=== PATIENT | female | born 1980 | race Two or more races ===

== ENCOUNTER 2023-08-20 11:07 | Emergency (ER) | payer BC, OTHER ==
[~2023-08-20] VITALS: Ht 154.9 cm; Wt 85.0 kg
[2023-08-20] MEDS ORDERED: cloNIDine HCL 0.1 MG TAB PO ONE (11:45)
[2023-08-20 12:13] LABS: Urine Bacteria FEW /hpf (None Seen); Urine Blood Negative /uL (Negative); Urine Clarity Clear (Clear); Urine Protein, UAD Negative (Negative); Urine Specific Gravity 1.004 (1.001-1.035); Urine Urobilinogen Normal (Negative); Urine WBC <1 /hpf (0 - 5)
[2023-08-20 12:20] LABS: Urine Color Straw (Yellow)
[2023-08-20 12:33] LABS: Basophils # (auto) 0 10 ^3/uL (0-0.2); Basophils % (auto) 0.5 % (0.0-2.0); Eosinophils # (auto) 0.2 10 ^3/uL (0-0.8); Eosinophils % (auto) 1.9 % (0.0-7.0); Hematocrit 40.3 % (36.0-46.0); Hemoglobin 13.7 g/dL (12.2-16.2); Lymphocytes # (auto) 1.7 10 ^3/uL (0.4-5.4); Lymphocytes % (auto) 20.8 % (10.0-50.0); Mean Corpuscular Hemoglobin 29.1 pg (28.0-32.0); Mean Corpuscular Hgb Conc. 33.9 g/dL (32.0-36.0); Mean Corpuscular Volume 85.9 fL (80.0-100.0); Monocytes # (auto) 0.5 10 ^3/uL (0-1.3); Monocytes % (auto) 6.1 % (0.0-12.0); Neutrophils # (auto) 5.9 10 ^3/uL (1.6-8.6); Neutrophils % (auto) 70.7 % (37.0-80.0); Red Cell Distribution Width 14.4 % (11.8-14.3); White Blood Cell 8.4 10^3/uL (4.4-10.8)
[2023-08-20 12:57] LABS: Alanine Aminotransferase 41 U/L (7-40); Albumin 4.6 g/dL (3.2-4.8); Alkaline Phosphatase 159 U/L (46-116); Anion Gap 9 (5-15); Aspartate Aminotransferase 21 U/L (13-40); BUN/Creatinine Ratio 9.8 (10.0-20.0); Bilirubin, Total 0.3 mg/dL (0.2-1.0); Blood Urea Nitrogen 6 mg/dL (9-23); Calcium 9.1 mg/dL (8.7-10.4); Carbon Dioxide 25 mmol/L (20-30); Chloride 105 mmol/L (98-107); Glucose 111 mg/dL (74-106); Potassium 3.5 mmol/L (3.5-5.1); Sodium 139 mmol/L (136-145)
[2023-08-20 13:01] LABS: INR 0.98 (0.9-1.15); Partial Thromboplastin Time 32.1 SEC (24.5-34.5); Prothrombin Time 10.3 sec (9.3-11.8)
[2023-08-20] MEDS ORDERED: LISI-275 PO (14:10)
[2023-08-20] MEDS ORDERED: HYD25TP TOP (14:10)
[2023-08-20 14:25] VITALS: BP 148/94; PULSE 107; RESP 16; TEMP 98.6; O2SAT 99
== END 2023-08-20 14:28 | disposition home or self-care (01) ==
LOC: ER 11:07
DX: I16.0 Hypertensive urgency (principal); I10 Essential (primary) hypertension
CPT/HCPCS: 36415; 71045; 80053; 81001; 83605; 84484; 85025; 85610; 85730; 87040; 93005

== ENCOUNTER 2024-08-24 08:44 | Emergency (ER) | payer BC ==
[~2024-08-24] VITALS: Ht 154.9 cm; Wt 80.4 kg
[~2024-08-24 08:44] MED LIST: HYD25TP TOP; LISI-275 PO
[2024-08-24] MEDS: KETOROLAC TROMETH 60MG/2ML VIAL IM ONE (09:51)
[2024-08-24 09:58] VITALS: TEMP 98.3
[2024-08-24 10:21] VITALS: BP 152/90; PULSE 68; RESP 17; O2SAT 99
[2024-08-24] MEDS ORDERED: SUMA50TA2 PO (10:22)
== END 2024-08-24 10:42 | disposition home or self-care (01) ==
LOC: ER 08:44
DX: G43.909 Migraine, unspecified, not intractable, without status migrainosus (principal); I10 Essential (primary) hypertension; Z79.899 Other long term (current) drug therapy
CPT/HCPCS: 70450; 96372; 99285; J1885

== ENCOUNTER 2025-02-04 14:04 | Emergency (ER) | payer BC ==
[~2025-02-04] VITALS: Ht 154.9 cm; Wt 90.5 kg
[~2025-02-04 14:04] MED LIST changes: +SUMA50TA2 PO
--- NOTE | 2025-02-04 15:37 | ED.PDOC ---
History of Present Illness HPI Comments 44 year old female presents to the ED with a chief complaint of headache onset 3 days. Patient began experiencing a headache, for the past 3 days, Tylenol was improving symptoms, since yesterday it was not helping, headache worsen. Describes pain as a throbbing/ sore sensation. Patient decided to drink caffeine today shortly after began experiencing, anxiety, shortness of breath, dizziness, blurry vision. She took Qulipta medication, prescribed for migraines with no improvement. PMHx anxiety, HLD, HTN, migraines. Denies vomiting, diarrhea, chest pain, fever, chills. No other symptoms or modifying factors present at this time. Chief Complaint: Headache Time Seen by MD: 15:24 Primary Care Provider: unknown Reviewed Notes: Nurses Notes, Medications, Allergies Allergies: Coded Allergies: NO KNOWN ALLERGIES (Unverified , 08/24/24) Home Meds Active Scripts Sumatriptan Succinate (Imitrex) 50 Mg Tab, 1 TAB PO BID, #20 TAB Prov:MARIE WINTERS 08/24/24 Hydrocortone (Hydrocortisone 2.5%) 1 Applic Ap, 1 APPLIC TOP BIDP for 7 Days, #5 GRAMS Prov:KEO CHAPARRO MD 08/20/23 Lisinopril (Lisinopril) 5 Mg Tab, 5 MG PO DAILY for 10 Days, #10 TAB Prov:KEO CHAPARRO MD 08/20/23 Information Source: Patient Mode of Arrival: Ambulatory Severity: Moderate Timing: Days Duration: Since onset Prehospital treatment: Pain Meds Past Medical History PAST MEDICAL HISTORY: Anxiety, High Lipids, HTN Past Medical History (Other): migraine Surgical History: Family History Family History: Family hx of DM, Family hx of HTN Social History Smoker: Non-Smoker Alcohol: Denies ETOH Use Drugs: Denies Drug Use Lives In: Home Constitutional: denies: chills, diaphoresis, fatigue, fever, malaise, sweats, weakness, others EENTM: reports: blurred vision; denies: double vision, ear bleeding, ear discharge, ear drainage, ear pain, ear ringing, eye pain, eye redness, hearing loss, mouth pain, mouth swelling, nasal discharge, nose bleeding, nose congestion, nose pain, photophobia, tearing, throat pain, throat swelling, voice changes, others Respiratory: reports: shortness of breath; denies: cough, hemoptysis, orthopnea, SOB at rest, SOB with excertion, stridor, wheezing, others Cardiovascular: denies: chest pain, dizzy spells, diaphoresis, Dyspnea on exertion, edema, irregular heart beat, left arm pain, lightheadedness, palpitations, PND, syncope, others Gastrointestinal: reports: nausea; denies: abdomen distended, abdominal pain, blood streaked bowels, constipated, diarrhea, dysphagia, difficulty swallowing, hematemesis, melena, poor appetite, poor fluid intake, rectal bleeding, rectal pain, vomiting, others Genitourinary: denies: abnormal vagina bleeding, burning, dyspareunia, dysuria, flank pain, frequency, hematuria, incontinence, pain, , vagina discharge, urgency, others Neurological: reports: dizziness, headache; denies: fainting, left sided numbness, left sided weakness, numbness, paresthesia, pre-existing deficit, right sided numbness, right sided weakness, seizure, speech problems, tingling, tremors, weakness, others Musculoskeletal: denies: back pain, gout, joint pain, joint swelling, muscle pain, muscle stiffness, neck pain, others Integumetry: denies: bruises, change in color, change in hair/nails, dryness, laceration, lesions, lumps, rash, wounds, others Allergic/Immunocompromised: denies: Difficulty Healing, Frequent Infections, Hives, Itching, others Hematologic/Lymphatic: denies: anemia, blood clots, easy bleeding, easy bruising, swollen glands, others Endocrine: denies: excessive hunger, excessive sweating, excessive thirst, excessive urination, flushing, intolerance to cold, intolerance to heat, unexplained weight gain, unexplained weight loss, others Psychiatric: denies: anxiety, bipolar disorder, depression, hopeless, panic disorder, schizophrenia, sleepless, suicidal, others All Other Systems: Reviewed and Negative Physical Exam General Appearance: No Apparent Distress HEENT: Normal ENT Inspection, Pharynx Normal, TMs Normal Neck: Full Range of Motion, Non-Tender, Normal, Normal Inspection Respiratory: Chest Non-Tender, Lungs Clear, No Accessory Muscle Use, No Respiratory Distress, Normal Breath Sounds Cardiovascular: No Edema, No JVD, No Murmur, No Gallop, Normal Peripheral Pulses, Regular Rate/Rhythm Breast Exam: Deferred Gastrointestinal: No Organomegaly, Non Tender, No Pulsatile Mass, Normal Bowel Sounds, Soft Genitalia: Deferred Pelvic: Deferred Rectal: Deferred Extremities: No calf tenderness, Normal capillary refill, Normal inspection, Normal range of motion, Non-tender, No pedal edema Musculoskeletal : Apperance: Normal Neurologic: Alert, receiving associate store II-XII nml as Tested, No Motor Deficits, Normal Affect, Normal Mood, No Sensory Deficits Cerebellar Function: Normal Reflexes: Normal Skin: Dry, Normal Color, Warm Lymphatic: No Adenopathy Was a procedure done? Was a procedure done?: No Differential Dx Considerations may include: Generalized headache, migraine headache, hypertension X-Ray, Labs, Meds, VS Vital Signs Date Time Temp Pulse Resp B/P (MAP) Pulse Ox O2 Delivery O2 Flow Rate FiO2 02/04/25 14:29 97.5 88 18 146/87 (106) 95 97.5 . PROCEDURE(s): HWOCT - HEAD WITHOUT CONTRAST Impression: 1. No acute intracranial abnormality. At this time, the patient was being discharged The patient will follow up with the primary care doctor The patient will return to the emergency department's the condition worsens. Images Reviewed?: Images reviewed and evaluated by me Time of 1ST Reevaluation: 15:54 Reevaluation 1ST: Unchanged Patient Education/Counseling: Diagnosis, Treatment, Prognosis, Need For Follow Up Family Education/Counseling: No Family Present Departure 1 Departure Time of Disposition: 16:37 Impression: Primary Impression: Tension headache Disposition: 01 HOME / SELF CARE / HOMELESS Condition: Fair Discharged With: Self Critical Care Note Critical Care Time?: No Stability Stability form required: No Heart Score Heart Score: Heart Score Response (Comments) Value History N/A 0 EKG N/A 0 Age N/A 0 Risk Factors N/A 0 Troponin N/A 0 Total 0 I personally scribed for PACO SUAREZ MD ([email or web address]) on 02/04/25 at 15:36. Electronically submitted by Nakita Rod ([email or web address]). I personally scribed for PACO SUAREZ MD ([email or web address]) on 02/04/25 at 16:20. Electronically submitted by Nakita Rod ([email or web address]). PACO SUAREZ MD Feb 04, 2025 15:36
--- NOTE | 2025-02-04 16:12 | DVH ---
Exam: CT HEAD WITHOUT CONTRAST History: MARION Technique: [address] images through the posterior fossa and the supratentorial compart ment were acquired without contrast and imaged using soft tissue and bone algorithms. RADIATION DOSE: DLP 959.35 mGy.cm; CTDI vol 54.17 mGy. Comparison: CT HEAD WITHOUT CONTRAST on DOS: 08/24/24 Findings: There is no evidence of an intracranial hemorrhage, acute large vessel infarct, mass effect, or midli ne shift. No significant calcification of the carotid siphons. The calvarium, orbits, paranasal sinuses, sella, middle ears, and mastoids are unremarkable. The superficial soft tissues are within normal limits. Impression: 1. No acute intracranial abnormality.
[2025-02-04 16:48] VITALS: BP 143/91; PULSE 63; RESP 18; TEMP 98; O2SAT 98
== END 2025-02-04 16:52 | disposition home or self-care (01) ==
LOC: ER 14:04
DX: G44.209 Tension-type headache, unspecified, not intractable (principal); I10 Essential (primary) hypertension; E78.5 Hyperlipidemia, unspecified; F41.9 Anxiety disorder, unspecified; Z79.899 Other long term (current) drug therapy; Z98.890 Other specified postprocedural states
CPT/HCPCS: 70450

== ENCOUNTER 2025-10-20 10:08 | Emergency (ER) | payer BC ==
[~2025-10-20] VITALS: Ht 157.5 cm; Wt 83.8 kg
[2025-10-20 10:10] VITALS: BP 164/102; PULSE 61; RESP 18; TEMP 98.3; O2SAT 99
--- NOTE | 2025-10-20 11:40 | ED.PDOC ---
Musculoskeletal HPI Comments 45 y/o obese F presents with c/c of left shoulder and arm numbness. Patient endorse on onset of symptoms alongside an isolated episode of mid-sternum chest discomfort, while running on 10/18/25. Pain has since subsided. Denies any recent fall or trauma. Denies any further acute symptoms. Chief Complaint: Upper Extremity Time Seen by MD: 12:00 Primary Care Provider: unknown Reviewed Notes: Medications, Allergies Allergies: Coded Allergies: NO KNOWN ALLERGIES (Unverified , 08/24/24) Home Meds Active Scripts Sumatriptan Succinate (Imitrex) 50 Mg Tab, 1 TAB PO BID, #20 TAB Prov:MARIE WINTERS 08/24/24 Hydrocortone (Hydrocortisone 2.5%) 1 Applic Ap, 1 APPLIC TOP BIDP for 7 Days, #5 GRAMS Prov:KEO CHAPARRO MD 08/20/23 Lisinopril (Lisinopril) 5 Mg Tab, 5 MG PO DAILY for 10 Days, #10 TAB Prov:KEO CHAPARRO MD 08/20/23 Information Source: Patient Mode of Arrival: Ambulatory Location: Left Extremity Location: Arm, Shoulder Timing: Days Prehospital treatment: None Severity: Moderate Pain: Moderate Onset of Symptoms: Spontaneous Symptoms: Pain Associated signs and symptoms: Shoulder pain, Arm pain Past Medical History PAST MEDICAL HISTORY: Anxiety, High Lipids, HTN Surgical History: Family History Family History: Family hx of DM, Family hx of HTN Social History Smoker: Non-Smoker Alcohol: Denies ETOH Use Drugs: Denies Drug Use Lives In: Home Constitutional: denies: chills, diaphoresis, fatigue, fever, malaise, sweats, weakness, others EENTM: denies: blurred vision, double vision, ear bleeding, ear discharge, ear drainage, ear pain, ear ringing, eye pain, eye redness, hearing loss, mouth pain, mouth swelling, nasal discharge, nose bleeding, nose congestion, nose pain, photophobia, tearing, throat pain, throat swelling, voice changes, others Respiratory: denies: cough, hemoptysis, orthopnea, SOB at rest, shortness of breath, SOB with excertion, stridor, wheezing, others Cardiovascular: denies: chest pain, dizzy spells, diaphoresis, Dyspnea on exertion, edema, irregular heart beat, left arm pain, lightheadedness, palpitations, PND, syncope, others Gastrointestinal: denies: abdomen distended, abdominal pain, blood streaked bowels, constipated, diarrhea, dysphagia, difficulty swallowing, hematemesis, melena, nausea, poor appetite, poor fluid intake, rectal bleeding, rectal pain, vomiting, others Genitourinary: denies: abnormal vagina bleeding, burning, dyspareunia, dysuria, flank pain, frequency, hematuria, incontinence, pain, , vagina discharge, urgency, others Neurological: denies: dizziness, fainting, headache, left sided numbness, left sided weakness, numbness, paresthesia, pre-existing deficit, right sided numbness, right sided weakness, seizure, speech problems, tingling, tremors, w eakness, others Musculoskeletal: denies: back pain, gout, joint pain, joint swelling, muscle pain, muscle stiffness, neck pain, others Integumetry: denies: bruises, change in color, change in hair/nails, dryness, laceration, lesions, lumps, rash, wounds, others Allergic/Immunocompromised: denies: Difficulty Healing, Frequent Infections, Hives, Itching, others Hematologic/Lymphatic: denies: anemia, blood clots, easy bleeding, easy bruising, swollen glands, others Endocrine: denies: excessive hunger, excessive sweating, excessive thirst, excessive urination, flushing, intolerance to cold, intolerance to heat, unexplained weight gain, unexplained weight loss, others Psychiatric: denies: anxiety, bipolar disorder, depression, hopeless, panic disorder, schizophrenia, sleepless, suicidal, others All Other Systems: Reviewed and Negative Physical Exam General Appearance: Moderate Distress HEENT: Normal ENT Inspection, Pharynx Normal, TMs Normal Neck: Full Range of Motion, Non-Tender, Normal, Normal Inspection Respiratory: Chest Non-Tender, Lungs Clear, No Accessory Muscle Use, No Respiratory Distress, Normal Breath Sounds Cardiovascular: No Edema, No JVD, No Murmur, No Gallop, Normal Peripheral Pulses, Regular Rate/Rhythm Breast Exam: Deferred Gastrointestinal: No Organomegaly, Non Tender, No Pulsatile Mass, Normal Bowel Sounds, Soft Genitalia: Deferred Pelvic: Deferred Rectal: Deferred Extremities: No calf tenderness, Normal capillary refill, Normal inspection, Normal range of motion, Non-tender, No pedal edema Musculoskeletal : Apperance: Normal Neurologic: Alert, sourcer II-XII nml as Tested, No Motor Deficits, Normal Affect, Normal Mood, No Sensory Deficits Cerebellar Function: Normal Reflexes: Normal Skin: Dry, Normal Color, Warm Peripheral Pulses: 3+ Radial (R), 3+ Radial (L) Lymphatic: No Adenopathy Was a procedure done? Was a procedure done?: No Differential Diagnosis EXT Differential Diagnosis: Fracture, Sprain, Dislocation, DJD, Strain, Neurovascular injury, Arthritis, Other (cervical radiculopathy) X-Ray, Labs, Meds, VS Vital Signs Date Time Temp Pulse Resp B/P (MAP) Pulse Ox O2 Delivery O2 Flow Rate FiO2 10/20/25 10:10 98.3 61 18 164/102 99 98.3 Patient alert. Came in because of left shoulder pain. Blood pressure elevated. Saturation pristine on room air. Heart rate within normal limits. She does not take any medication for her blood pressure. Initially she was complaining of left shoulder pain. Later into the conversation she started complaining that she has been followed up by cardiology. Unknown which symptom is correct. She denies anxiety disorder. She refused to get an x-ray of the shoulder even though she was complaining of pain. She keeps changing her symptoms. Was given clonidine for the blood pressure. Explained to the patient that she will need to wait for further evaluation. Continue monitoring. Time of 1ST Reevaluation: 12:30 Reevaluation 1ST: Unchanged Patient Education/Counseling: Diagnosis, Treatment Family Education/Counseling: No Family Present Departure 1 Departure Time of Disposition: 12:23 Impression: Primary Impression: Hypertensive urgency Disposition: ADMITTED INPATIENT Admit to: Med Surg Condition: Guarded Critical Care Note Critical Care Time?: No Stability Stability form required: No Heart Score Heart Score: Heart Score Response (Comments) Value History N/A 0 EKG N/A 0 Age N/A 0 Risk Factors N/A 0 Troponin N/A 0 Total 0 I personally scribed for KEO CHAPARRO MD ([email or web address]) on 10/20/25 at 11:40. Electronically submitted by Kimberly Casarez ([email or web address]). I personally scribed for KEO CHAPARRO MD ([email or web address]) on 10/20/25 at 12:18. Electronically submitted by Angelo Brenner ([email or web address]). KEO CHAPARRO MD Oct 20, 2025 11:40
== END 2025-10-20 12:27 | disposition left against medical advice (07) ==
LOC: ER 10:08
DX: I16.0 Hypertensive urgency (principal); I10 Essential (primary) hypertension; F41.9 Anxiety disorder, unspecified; E78.5 Hyperlipidemia, unspecified; Z79.899 Other long term (current) drug therapy